=== PATIENT | female | born 1950 | race Caucasian/White ===

== ENCOUNTER → 2016-08-25 | Outpatient (CLI) | payer BC ==
[~2016-08-25] MED LIST: CHONCAP PO; KRIL1000 PO; LEVO50TA6 PO; MULT-506 PO; OPTIRAY 320 IV PRN; PRLSR20 PO; [UNRECOGNIZED DRUG - CODE] PO
--- NOTE | 2016-08-25 15:29 | DIAGNOSTIC IMAGING REPORT ---
CT SCAN OF THE CHEST, ABDOMEN, AND PELVIS WITH IV CONTRAST CLINICAL HISTORY: Gastric cancer. Endometrial cancer. COMPARISON STUDY: CT scan of the chest, abdomen, and pelvis dated 06/18/2016. TECHNIQUE: Following the IV administration of 116 of Optiray 320, CT scan of the chest, abdomen, and pelvis was performed from the thoracic inlet to the proximal femora. Images are reviewed in the axial, sagittal, and coronal planes. IV contrast was administered without complication. Automated dose control exposure was utilized. CT DOSE: 757.74 mGy.cm FINDINGS: CHEST: Thyroid: Imaged portions of the thyroid gland are normal in size and attenuation. Thoracic aorta: The thoracic aorta is normal in course and caliber. The heart demonstrates bovine variant anatomy. No aneurysm or dissection is seen. A right internal jugular central venous infusion port is in place. Pulmonary vasculature: The pulmonary trunk is normal in caliber. There are no filling defects identified in the central pulmonary vessels to indicate pulmonary was. Note that this examination was not protocoled for evaluation of the pulmonary arteries. Heart: The heart is normal in size and configuration, and without pericardial effusion. Lungs and pleural spaces: There are trace pleural effusions and dependent atelectasis. The trachea and central airways are patent. The trachea and central airways are clear. Linear atelectasis is noted at the left lung base. There is a small cluster of nodules at the left apex seen on image #[id number]. This is new from 06/18/2016, and the largest nodule measures up to 4 mm. Mediastinum: There is no mediastinal lymphadenopathy. Violette: Clear. Axillae: There is no axillary lymphadenopathy. Bony thorax: The skeletal structures are osteopenic. No lytic or blastic lesions are identified. ABDOMEN AND PELVIS: Liver: The contrast-enhanced liver is normal in size, contour, and attenuation. There is no intrahepatic or ductal dilatation. The hepatic veins and portal veins are patent. Small hepatic cysts are unchanged and measure up to 1.5 cm. Gallbladder: Unremarkable. Spleen: Normal in size and attenuation. Pancreas: Moderately atrophic and grossly unremarkable. Adrenal glands: Unremarkable. Kidneys: There is asymmetric cortical atrophy of the left kidney as compared to the right. The left kidney demonstrates heterogeneous and diminished perfusion. There is mild left hydroureteronephrosis to the level of a mass lesion in the pelvis. This has improved from previous. No hydronephrosis is seen on the right. Cortical hypodensities in the right kidney likely represent cysts but are too small for definitive characterization. These are unchanged from previous. Abdominal vasculature: The abdominal aorta is normal in course and caliber. Stomach and bowel: A tiny hiatal hernia is observed. There is significant wall thickening as well as hyperemia identified in the distal stomach/pyloric region. This is similar in appearance to prior studies. There is mild distention of the proximal stomach. The duodenum is normal in configuration. There is no bowel obstruction. The appendix is well-visualized and normal. Peritoneum: There is a large volume of perihepatic and perisplenic ascites, as well as free fluid in the pelvis. This has significantly increased from 06/18/2016. No intraperitoneal free air is seen. There has been significant progression of intraperitoneal metastatic disease as compared previous, with extensive omental and peritoneal nodularity. Lymphadenopathy: None. Pelvic viscera: Streak artifact from a left hip arthroplasty degrades evaluation of the pelvis. The bladder and uterus are normal as visualized. There are heterogeneous mass lesions identified in the pelvis bilaterally. The large lesion in the left pelvis has continued to increase in size, currently measuring 13 x 9 cm (producing measured 11 x 7 cm). A lesion in the right pelvis is seen on image #353 measures 5 x 4 cm (previously measured 3.0 x 3.5 cm.) Skeletal structures: The skeletal structures are osteopenic. There is mild lumbosacral spondylosis. No lytic or blastic lesions are seen. A left hip arthroplasty is in place. Advanced arthritic change is seen in the right hip. IMPRESSION: 1. There is no clear evidence of intrathoracic metastatic disease. 2. There are trace pleural effusions which are new from previous,. A small focus of clustered nodules at the left apex is also new. Although pathologically indeterminant, this is likely on an infectious/inflammatory basis. Attention at follow-up is recommended. 3. Significant wall thickening and mild hyperemia is again seen in the distal stomach. This likely represents the site of the patient's known gastric tumor. The appearance is similar to prior examinations. 4. There is distention of the proximal stomach, possibly related to mild gastric outlet obstruction. There is no evidence of complete obstruction as enteric contrast reaches the colon. This is also unchanged from 06/18/2016. 5. There is a large volume of abdominopelvic ascites, significantly increased from 06/18/2016. There has been significant progression of peritoneal carcinomatosis from previous as well as enlargement of bilateral pelvic masses which likely represent metastatic deposits in the ovaries. 6. Again seen is asymmetric atrophy of the left kidney with mild left hydroureteronephrosis. This likely represents obstruction from the large left pelvic mass, and the degree of hydronephrosis has improved from 06/18/2016. 7. Additional findings as above. Electronically signed by: Arben Almaguer M.D. 08/25/2016 3:28 PM Dictated Date/Time: 08/25/2016 3:13 PM
== END | disposition home or self-care (01) ==
LOC: C.CTS 14:51
PROVIDERS: ATTEND Internal Medicine Hematology & Oncology
DX: C16.3 Malignant neoplasm of pyloric antrum (principal); J90 Pleural effusion, not elsewhere classified; R91.8 Other nonspecific abnormal finding of lung field; R68.89 Other general symptoms and signs; R18.8 Other ascites; R19.07 Generalized intra-abdominal and pelvic swelling, mass and lump; N26.1 Atrophy of kidney (terminal); M16.11 Unilateral primary osteoarthritis, right hip; Z96.642 Presence of left artificial hip joint; K86.89 Other specified diseases of pancreas; K76.89 Other specified diseases of liver; M85.80 Other specified disorders of bone density and structure, unspecified site; J98.11 Atelectasis

== ENCOUNTER → 2016-08-27 | Outpatient (CLI) | payer BC ==
[~2016-08-27] MED LIST changes: -OPTIRAY 320 IV PRN
--- NOTE | 2016-08-27 09:03 | DIAGNOSTIC IMAGING REPORT ---
(BARIUM SWALLOW) ESOPHAGUS CLINICAL HISTORY: Gastric cancer. COMPARISON STUDY: Abdomen and pelvis CT 08/25/2016. FLUOROSCOPY TIME: 1.4 minutes. 31 images submitted.. FINDINGS: The contours of the hypopharynx are within normal limits. The esophagus is normal in course, caliber, motility. No hiatus hernia. No gastric esophageal reflux. The barium tablet passed without difficulty. IMPRESSION: Normal barium swallow. Electronically signed by: Ponce King M.D. 08/27/2016 9:01 AM Dictated Date/Time: 08/27/2016 9:00 AM
== END | disposition home or self-care (01) ==
LOC: C.RAD 08:25
PROVIDERS: ATTEND Nurse Practitioner Family
DX: C16.9 Malignant neoplasm of stomach, unspecified (principal)

== ENCOUNTER → 2016-10-01 | Outpatient (CLI) | payer BC ==
[~2016-10-01] MED LIST changes: -CHONCAP PO
--- NOTE | 2016-10-01 14:43 | DIAGNOSTIC IMAGING REPORT ---
CHEST 2 VIEWS ROUTINE HISTORY: Short of breath. COMPARISON: Chest 06/24/2015. FINDINGS: The lungs are clear. Cardiac silhouette is normal in size. No pleural effusions. No pneumothorax. Right jugular central venous catheter terminates in the SVC. IMPRESSION: No acute process. Electronically signed by: Ponce King M.D. 10/01/2016 2:42 PM Dictated Date/Time: 10/01/2016 2:41 PM
--- NOTE | 2016-10-06 12:03 | CODING QUERY NO DIAGNOSIS ---
TREATMENT RENDERED WITHOUT A DIAGNOSIS Viridiana DAVILA, To promote full compliance with coding requirements relating to patient care, physician participation is requested in all cases of neurological physiotherapist uncertainty. Please assist us with providing a diagnosis/symptom for the test(s) below: A diagnosis/symptom was not documented on your Order. A valid diagnosis/symptom is required to bill all insurances. Please remember that we are unable to code a diagnosis of rule out, probable, possible, questionable, or suspected. Tests that require a diagnosis: * CHEST X-RAY 2 VIEWS PA & LATERAL DIAGNOSIS: DATE OF SERVICE: 10/01/16 Provider Signature: Date: Thank you Dieter Pena [facility] Information Management Once completed, please kindly fax back to [phone] For questions please call [phone]
== END | disposition home or self-care (01) ==
LOC: C.RAD 14:15
PROVIDERS: ATTEND Nurse Practitioner Family
DX: C16.9 Malignant neoplasm of stomach, unspecified (principal); R06.02 Shortness of breath

== ENCOUNTER 2016-10-14 15:24 | Inpatient (IN) | payer BC ==
[~2016-10-14] VITALS: Ht 170.2 cm; Wt 67.9 kg
[2016-10-14] MEDS ORDERED: SODIUM CHLORIDE 0.9% 1000ML 1,000 ML IV STA (15:39)
[2016-10-14] MEDS ORDERED: ONDANSETRON INJ 2 MG/ML 2 ML VIAL IV PRN (15:45)
--- NOTE | 2016-10-14 15:47 | EMERGENCY ROOM VISIT NOTE ---
History Report prepared by Jose: Lesa Mata Under the Supervision of: Dr. Jose Menjivar M.D. First contact with patient: 15:33 Chief Complaint: WEAKNESS Stated Complaint: WEAKNESS, DIZZINESS History of Present Illness The patient is a 66 year old female who presents to the Emergency Room with complaints of persistent weakness for one week. She currently rates her discomfort as a 4/10 in severity. Per nursing staff, the patient has a history of stomach cancer with METs everywhere. Nursing staff reports that the patient had paracentesis on Wednesday. The patient notes constant nausea and vomiting. She states that she called oncology this morning and was instructed to come to the emergency department for further work up. The patient denies any fever. Source of History: patient, nursing staff Onset: one week Position: other (global) Symptom Intensity: 4/10 Quality: other (weakness) Timing: other (persistent) Associated Symptoms: + nausea, + vomiting, No fevers Review of Systems See HPI for pertinent positives & negatives. A total of 10 systems reviewed and were otherwise negative. Past Medical & Surgical Medical Problems: (1) Malignant neoplasm of stomach (2) Metastasis from gastric cancer Family History No pertinent family history stated. Social History Smoking Status: Never Smoker Drug Use: none Marital Status: Occupation Status: employed Current/Historical Medications Scheduled Beta Carotene (B-Noland-T), 1 TAB PO QAM Krill Oil (Krill Oil), 1 CAP PO DAILY Levothyroxine Sodium (Levothyroxine Sodium), 1 TAB PO DAILY Multivitamin (Multivitamin), 1 TAB PO BID Omeprazole (Prilosec), 20 MG PO BID Allergies Coded Allergies: Chlorhexidine (Verified Allergy, Intermediate, RASH, 10/14/16) Physical Exam Vital Signs Date Time Temp Pulse Resp B/P Pulse Ox O2 Delivery O2 Flow Rate FiO2 10/14/16 17:52 102 19 115/80 94 Room Air 10/14/16 16:57 94 Room Air 10/14/16 15:33 107 10/14/16 15:31 36.3 107 20 110/79 97 Room Air Physical Exam GENERAL: Patient awake, alert, oriented x 3. Patient follows commands. Patient appears emaciated and dehydrated. Patient appears extremely weak. SKIN: Thomas. No erythema, pallor, cyanosis or rash HEENT: Normal head, pupils equal, reactive to light and accommodation. Ears normal. Oral cavity and posterior pharynx appear normal. Neck: Without adenopathy, no neck vein distention. CHEST: Port in right upper chest. LUNGS: Clear to auscultation. No wheezes, no rales, no rhonchi. HEART: Tachycardic. No murmurs. No gallops. No rubs ABDOMEN: Distended abdomen, consistent with some ascites. No masses, no rebound , no hepatomegaly or splenomegaly. EXTREMITIES: No signs of trauma. 2+ pretibial edema. No calf or thigh tenderness. NEUROLOGIC: Cranial nerves II-XII within normal limits. No gross motor sensory function deficits. Medical Decision & Procedures ER Provider Diagnostic Interpretation: X ray results are stated below per my interpretation and the radiologist's interpretation. CHEST ONE VIEW PORTABLE CLINICAL HISTORY: Stomach cancer with metastases. COMPARISON STUDY: Chest CT August 25, 2016 and chest radiograph October 01, 2016. FINDINGS: A right internal jugular [id number] is in place. Lung lungs are normal. Lungs are clear. There is no pneumothorax or pleural effusion. Pulmonary vascularity is normal. Cardiomediastinal silhouette is normal. IMPRESSION: No acute cardiopulmonary findings. Electronically signed by: Jr Renee M.D. 10/14/2016 4:32 PM Dictated Date/Time: 10/14/2016 4:31 PM Laboratory Results 10/14/16 16:10 Red Blood Count 4.66, Mean Corpuscular Volume 70.4, Mean Corpuscular Hemoglobin 22.5, Mean Corpuscular Hemoglobin Concent 32.0, Mean Platelet Volume 8.6, Neutrophils (%) (Auto) 75.9, Lymphocytes (%) (Auto) 14.6, Monocytes (%) (Auto) 8.9, Eosinophils (%) (Auto) 0.0, Basophils (%) (Auto) 0.1, Neutrophils # (Auto) 8.33, Lymphocytes # (Auto) 1.60, Monocytes # (Auto) 0.98, Eosinophils # (Auto) 0.00, Basophils # (Auto) 0.01 10/14/16 16:10 Test 10/14/16 16:10 10/14/16 16:55 White Blood Count 10.98 K/uL (4.8-10.8) Red Blood Count 4.66 M/uL (4.2-5.4) Hemoglobin 10.5 g/dL (12.0-16.0) Hematocrit 32.8 % (37-47) Mean Corpuscular Volume 70.4 fL (80-100) Mean Corpuscular Hemoglobin 22.5 pg (25-34) Mean Corpuscular Hemoglobin Concent 32.0 g/dl (32-36) Platelet Count 471 K/uL (130-400) Mean Platelet Volume 8.6 fL (7.4-10.4) Neutrophils (%) (Auto) 75.9 % Lymphocytes (%) (Auto) 14.6 % Monocytes (%) (Auto) 8.9 % Eosinophils (%) (Auto) 0.0 % Basophils (%) (Auto) 0.1 % Neutrophils # (Auto) 8.33 K/uL (1.4-6.5) Lymphocytes # (Auto) 1.60 K/uL (1.2-3.4) Monocytes # (Auto) 0.98 K/uL (0.11-0.59) Eosinophils # (Auto) 0.00 K/uL (0-0.5) Basophils # (Auto) 0.01 K/uL (0-0.2) RDW Standard Deviation 57.6 fL (36.4-46.3) RDW Coefficient of Variation 22.5 % (11.5-14.5) Immature Granulocyte % (Auto) 0.5 % Immature Granulocyte # (Auto) 0.06 K/uL (0.00-0.02) Hypochromasia PRESENT Anisocytosis PRESENT Microcytosis PRESENT Macrocytosis PRESENT Ovalocytes 1+ Schistocytes 1+ Anion Gap 10.0 mmol/L (3-11) Est Creatinine Clear Calc Drug Dose 20.4 ml/min Estimated GFR () 21.6 Estimated GFR (Non- 18.6 BUN/Creatinine Ratio 30.4 (10-20) Calcium Level 9.0 mg/dl (8.5-10.1) Total Bilirubin 0.3 mg/dl (0.2-1) Aspartate Amino Transf (AST/SGOT) 16 U/L (15-37) Alanine Aminotransferase (ALT/SGPT) 22 U/L (12-78) Alkaline Phosphatase 79 U/L (45-117) Troponin I 0.020 ng/ml (0-0.045) Total Protein 5.3 gm/dl (6.4-8.2) Albumin 1.9 gm/dl (3.4-5.0) Globulin 3.4 gm/dl (2.5-4.0) Albumin/Globulin Ratio 0.6 (0.9-2) Urine Color YELLOW Urine Appearance CLEAR (CLEAR) Urine pH 5.0 (4.5-7.5) Urine Specific Webster 1.024 (1.000-1.030) Urine Protein NEG (NEG) Urine Glucose (UA) NEG (NEG) Urine Ketones 1+ (NEG) Urine Occult Blood 2+ (NEG) Urine Nitrite NEG (NEG) Urine Bilirubin NEG (NEG) Urine Urobilinogen NEG (NEG) Urine Leukocyte Esterase TRACE (NEG) Urine WBC (Auto) 1-5 /hpf (0-5) Urine RBC (Auto) 10-30 /hpf (0-4) Urine Hyaline Casts (Auto) 5-10 /lpf (0-5) Urine Epithelial Cells (Auto) >30 /lpf (0-5) Urine Bacteria (Auto) 1+ (NEG) Urine Renal Epithelial Cells /lpf (0-5) Laboratory results as stated above per my review. Medications Administered Medications (Trade) Dose Ordered Sig/Roman Route Start Time Stop Time Status Last Admin Dose Admin Ondansetron HCl 4 mg 4 mg PRN PRN IV 10/14/16 15:45 11/13/16 15:44 10/14/16 15:57 4 MG Sodium Chloride (Nss 1000ml) 1,000 ml @ 500 mls/hr Q2H STAT IV 10/14/16 15:39 10/14/16 17:38 DC 10/14/16 15:55 500 MLS/HR ECG Indication: weakness Rate (beats per minute): 99 Rhythm: normal sinus Findings: nonspecific-ST abn, no ectopy ED Course 1534: Past medical records reviewed. The patient was evaluated in room C9. A complete history and physical examination was performed. 1539: Ordered Sodium Chloride 1000 ml @ 500 mls/hr IV. 1545: Ordered Zofran Inj 4 mg IV. 1703: I reevaluated the patient and she is resting comfortably. I began to discuss hospice with her, but she states that no one has discussed this option with her in the past. I discussed all the exam findings with her and I discussed the treatment plan. She verbalized complete understanding and agreement. She will be evaluated for further treatment. 170: I discussed the patient's case with LILI Bundy. He is going to evaluate the patient for further treatment. Medical Decision Nurses notes reviewed. Medical history sheet reviewed. Differential diagnosis includes but is not limited to: metastatic cancer, dehydration, malnourished, metabolic disorder, infection. Patient is extremely weak. She can barely lift her head up off the bed. Multiple labs and imaging were obtained. The patient's renal function has deteriorated significantly in the past week. The patient had a recent paracentesis. She is currently dehydrated. The patient will require further evaluation in the hospital. I began to discuss hospice with the patient but she apparently has not had any discussions regarding palliative care. Consults Time Called: 1705 Consulting Physician: LILI Bundy Returned Call: [phone] I discussed the patient's case with LILI Bundy. He is going to evaluate the patient for further treatment. Impression Primary Impression: Renal failure Additional Impressions: Primary cancer of stomach with metastasis to other site Hyponatremia Scribe Attestation The scribe's documentation has been prepared under my direction and personally reviewed by me in its entirety. I confirm that the note above accurately reflects all work, treatment, procedures, and medical decision making performed by me. Departure Information Dispostion Being Evaluated By Hospitalist Estevan Taylor M.D. (PCP) Problem Qualifiers
[2016-10-14 16:21] LABS: BASO % 0.1 %; BASO ABS # 0.01 K/uL (0-0.2); HEMATOCRIT 32.8 % (37-47); IG% 0.5 %; LYMPH % 14.6 %; MEAN CELL VOLUME 70.4 fL (80-100); MEAN CORPUSCULAR HEMOGLOBIN 22.5 pg (25-34); MEAN PLATELET VOLUME 8.6 fL (7.4-10.4); MONO % 8.9 %; NEUT % 75.9 %; PLATELET COUNT 471 K/uL (130-400); RED BLOOD COUNT 4.66 M/uL (4.2-5.4); WHITE BLOOD COUNT 10.98 K/uL (4.8-10.8)
--- NOTE | 2016-10-14 16:33 | DIAGNOSTIC IMAGING REPORT ---
CHEST ONE VIEW PORTABLE CLINICAL HISTORY: Stomach cancer with metastases. COMPARISON STUDY: Chest CT August 25, 2016 and chest radiograph October 01, 2016. FINDINGS: A right internal jugular [id number] is in place. Lung lungs are normal. Lungs are clear. There is no pneumothorax or pleural effusion. Pulmonary vascularity is normal. Cardiomediastinal silhouette is normal. IMPRESSION: No acute cardiopulmonary findings. Electronically signed by: Jr Renee M.D. 10/14/2016 4:32 PM Dictated Date/Time: 10/14/2016 4:31 PM
[2016-10-14 16:43] LABS: BUN/CREATININE RATIO 30.4 (10-20); CREATININE 2.6 mg/dl (0.60-1.20); POTASSIUM 5.1 mmol/L (3.5-5.1)
[2016-10-14 16:46] LABS: ALB/GLOB RATIO 0.6 (0.9-2)
[2016-10-14 16:58] LABS: ANISOCYTOSIS PRESENT; COMPLETE YES; HYPOCHROMIA PRESENT; MICROCYTOSIS PRESENT; OVALOCYTES 1+; SCHISTOCYTES 1+
[2016-10-14 17:27] LABS: URINE APPEARANCE CLEAR (CLEAR); URINE BILIRUBIN NEG (NEG); URINE COLOR YELLOW; URINE EPITHELIAL CELL AUTO >30 /lpf (0-5); URINE NITRITE NEG (NEG); URINE SPECIFIC GRAVITY 1.024 (1.000-1.030); UROBILINOGEN NEG (NEG)
[2016-10-14] MEDS ORDERED: ACETAMINOPHEN 325 MG TAB PO PRN (17:30)
[2016-10-14] MEDS ORDERED: OXYCODONE HCL IR 5 MG TAB (IMMEDIATE RELEASE) PO PRN (17:30)
[2016-10-14] MEDS ORDERED: LORAZEPAM 2 MG/ML 1 ML VIAL IV PRN ×4 (17:30→19:15)
[2016-10-14] MEDS ORDERED: MoRPHine SULFATE 4 MG/ML 1 ML CARP\\VIAL IV PRN (17:30)
[2016-10-14 17:32] LABS: MANUAL MICROSCOPIC REQUIRED? NO; REVIEW REQ? YES
[2016-10-14 17:40] LABS: ZZURINE CULT IF INDIC CATH YES
[2016-10-14] MEDS ORDERED: LORAZEPAM INJ 1 MG in SYRINGE 0.5 ML IV PRN (19:15)
[2016-10-14 19:20] VITALS: BP 113/79; PULSE 92; TEMP 36.6; O2SAT 98; Ht 170.2 cm; Wt 67.9 kg
--- NOTE | 2016-10-14 19:26 | HISTORY & PHYSICAL EXAMINATION ---
DATE OF ADMISSION: 10/14/2016 CHIEF COMPLAINT: Weakness. ADMITTING DIAGNOSIS: Metastatic gastric carcinoma with peritoneal implants and ascites. HISTORY OF PRESENT ILLNESS: Ms. Ochoa is a 66-year-old female who was first diagnosed with gastric cancer in November of 2014. She initially had some response to chemotherapy but then had recurrence in June 2015. Chemotherapy was resumed somewhere in July or August 2015 and she was evaluated for radiation therapy which she was felt not qualified for. Subsequently in December of 2015, she was found to have a left adnexal mass with some hydronephrosis. This was eventually biopsied and proven to be metastatic carcinoma. The patient has been treated with Dr. Alan and currently is on chemotherapy, but has developed progressive abdominal distention and ascites. Her most recent therapeutic paracentesis was October 12. The patient now is unable to care for herself at home. She claims to have no local family, only having a daughter in [facility], and has no friends to help her. She is weak, otherwise, has not had a bowel movement in 1 week. She only has been drinking broth and soups at home. When asked about the next steps or possible future plans with her treatment, she says she did not know. When asked about DNR status, she said she did not know. She did request that social worker clinical assist her in compiling a will. OTHER PAST MEDICAL HISTORY: Bilateral total hip arthroplasties and hypothyroidism. MEDICATIONS: On presentation are Synthroid 50 mcg a day, Multivite, beta-carotene, Krill oil, and she takes Prilosec. SOCIAL HISTORY: She does not smoke. She occasionally drinks alcohol. 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 FAMILY HISTORY: Positive for uterine cancer. REVIEW OF SYSTEMS: Ten systems were reviewed and reveals profound weakness, decreased appetite, anorexia. She has actually had weight gain. She has had lower extremity edema. She has had constipation and she has had dark-colored urine. Otherwise, 10 systems were reviewed and are negative. PHYSICAL EXAMINATION: GENERAL: She is emaciated. VITAL SIGNS: Temperature is 36.3, pulse 107, respirations 20, BP 110/79, O2 sats 94 on room air. HEENT: She had a sallow colored appearance. She is anicteric. Her mucous membranes are dry. NECK: Trachea is midline. HEART: Regular without murmurs. A-port in the right upper chest. LUNGS: Clear without wheeze or crackles. ABDOMEN: Protuberant. There is a bandage on her left lower quadrant where the paracentesis was performed. She has shifting dullness. She has no guarding or focal tenderness. EXTREMITIES: With 1+ edema. NEUROLOGIC: She is awake, alert. She is oriented. She appears to be in a state of denial regarding the severity of her illness. She refuses my request to call her only daughter who lives in [facility] to update her on her condition. LABORATORY DATA: White count 10, H\T\H 10 and 32, platelet count 471, BUN and creatinine 79 and 2.6, potassium 5.1, sodium 127, calcium is normal at 9. Chest x-ray is unremarkable. EKG shows sinus rhythm. Last CT scan of her abdomen and pelvis was performed by Dr. Alan and Dr. Mcmahon on 08/25/2016. This showed trace pleural effusions, new apical cluster of nodules in her lung, distal stomach with wall thickening, large volume of ascites, progression of peritoneal carcinomatosis, large bilateral pelvic masses, asymmetric atrophy of the left kidney with mild left hydronephrosis which is likely extrinsically compressed and a large left pelvic mass. The pelvic masses at that time were measuring 11 x 9 on the left and 5 x 4 on the right. ASSESSMENT: Progressive metastatic gastric carcinoma is a 66-year-old female who now is unable to care for herself at home. As mentioned above, patient states Dr. Alan is giving her Optivo. The patient will be admitted to our facility. Palliative care and oncology consultation will be undertaken to determine if we are nearing a point for hospice transition. The patient needs to be counseled extensively and she is ill-prepared to progress into the next stage for metastatic illness. We will employ anxiety and pain medications to control these symptoms. We will use intravenous fluid given elevation of BUN and creatinine, understanding this may worsen her ascites. We may consider evaluating her for ureteral stenting but this will not change the outcome of her progressive metastatic disease. We will maintain her Synthroid therapy and use Lovenox for DVT prevention. The patient was questioned about her request for resuscitative status and said she was unsure at this time, and she requests case management help her preparing a will. BASSAM
[2016-10-14] MEDS: SODIUM CHLORIDE 0.9% 1000ML 1,000 ML IV SCH (20:10)
[2016-10-14] MEDS: ENOXAPARIN 30 MG/0.3 ML SYR SQ SCH (20:15)
[2016-10-14 23:54] VITALS: BP 90/60; PULSE 90; TEMP 36.8; O2SAT 100
[2016-10-15] VITALS: O2SAT 98
[2016-10-15] MEDS: SODIUM CHLORIDE 0.9% 1000ML 1,000 ML IV SCH ×3 (03:30→23:30)
[2016-10-15] MEDS: LEVOTHYROXINE 50 MCG TAB PO SCH (06:20)
[2016-10-15 07:00] VITALS: BP 96/67; PULSE 82; TEMP 36.7; O2SAT 99
[2016-10-15 07:06] LABS: BUN/CREATININE RATIO 38.3 (10-20); CALCIUM 7.9 mg/dl (8.5-10.1); CREATININE 1.9 mg/dl (0.60-1.20); POTASSIUM 4.2 mmol/L (3.5-5.1)
[2016-10-15 07:23] LABS: HEMATOCRIT 27.7 % (37-47); MEAN CELL VOLUME 70.3 fL (80-100); MEAN CORPUSCULAR HEMOGLOBIN 22.8 pg (25-34); MEAN CORPUSCULAR HGB CONC 32.5 g/dl (32-36); MEAN PLATELET VOLUME 8.9 fL (7.4-10.4); PLATELET COUNT 476 K/uL (130-400); RED BLOOD COUNT 3.94 M/uL (4.2-5.4)
[2016-10-15] MEDS ORDERED: PANTOprazole SOD 40 MG TAB PO SCH ×2 (08:00)
[2016-10-15] MEDS ORDERED: NURSING VERBAL MED ORDER ONE ×3 (09:30→14:15)
[2016-10-15] MEDS ORDERED: BISACODYL 10 MG SUPP PR PRN (09:45)
[2016-10-15] MEDS ORDERED: MINERAL OIL 30 ML UDC PO PRN (09:45)
[2016-10-15] MEDS: POLYETHYLENE (MIRALAX) 17 GM PACK PO SCH ×4 (10:03→22:00)
[2016-10-15 10:29] VITALS: O2SAT 98
--- NOTE | 2016-10-15 13:19 | Palliative Care Consultation ---
Consultation Date of Consultation: Oct 15, 2016. Requesting Physician: Dr. Vasquez Attending Physician: Dr. Walker Reason for Consultation: Goals of care History of Present Illness This 66 year old female patient presented to the ED yesterday with c/o weakness. She has a history of gastric cancer, diagnosed November 2014. She had a short period of response to treatment, then had recurrence in June 2015. Chemotherapy was resumed in the beginning of 2015. She was found to have a left adnexal mass in July 2015 which was biopsied and shown to be metastatic carcinoma. Most recently, patient has been receiving Opdivo. She's had increased abdominal distention and ascites, last paracentesis was 4/3 per record. This past week, she's been progressively weaker and it's been increasingly difficult for her to care for herself as she lives alone. She is not improving with the Opdivo and likely will not be continuing with this therapy. Palliative care consulted to assist in establishing goals of care. I met with the patient in room 452. She is very pleasant, alert and oriented x4. She denies any pain or discomfort, was eating lunch while I was in the room. She states that she knows her condition is terminal. She is accepting of this, however she has absolutely no support in this area. She is actually from [facility], came here quite a few years ago and dose research at [facility]. Her mother is still living in [facility], and her daughter lives in [facility]. Her daughter is not aware of the patient's cancer diagnosis at all, the patient has no told her because she didn't want her to worry. Patient states she has not a single friend or family member her that could help her or give her support. Patient is quite concerned because she can't be home alone any more but she has no means to pay for senior care care facility. Case management is working closely with the patient on this matter. We discussed goals of care. Patient stated, "I just want to be comfortable and go () as naturally as possible." She wants to be a level 5 DNR/DNI, would not want any life prolonging treatment such as feeding tube. Past Medical/Surgical History Medical History: Hypothyroidism Metastatic gastric cancer Surgical History: Bilateral total hips Social History Smoking Status: Never Smoker History of Alcohol Use: No Drug Use: none Marital Status: Housing Status: lives alone Occupation Status: employed Review of Systems Constitutional: + fatigue, + weakness, No chills, No fever ENT: No trouble swallowing Respiratory: No cough, No dyspnea on exertion, No shortness of breath Cardiac: No chest pain, No edema Abdomen: + constipation, No nausea, No pain, No vomiting Female : No problem reported Psychiatric: No anxiety, No depression symptoms Allergies Coded Allergies: Chlorhexidine (Verified Allergy, Intermediate, RASH, 10/14/16) Medications Current Inpatient Medications Medications (Trade) Dose Ordered Sig/Roman Route Start Time Stop Time Status Last Admin Dose Admin Enoxaparin Sodium (Lovenox Inj) 30 mg DAILY@2000 SQ 10/14/16 20:00 11/13/16 19:59 10/14/16 20:15 30 MG Acetaminophen (Tylenol Tab) 650 mg Q4H PRN PO 10/14/16 17:30 11/13/16 17:29 Ondansetron HCl (Zofran Inj) 4 mg Q6H PRN IV 10/14/16 17:30 11/13/16 17:29 Morphine Sulfate (MoRPHine SULFATE INJ) 4 mg Q4H PRN IV 10/14/16 17:30 10/28/16 17:29 Morphine Sulfate (MoRPHine SULFATE INJ) 2 mg Q4H PRN IV 10/14/16 17:30 10/28/16 17:29 Oxycodone HCl 10 mg 10 mg Q6 PRN PO 10/14/16 17:30 10/28/16 17:29 Sodium Chloride (Nss 1000ml) 1,000 ml @ 100 mls/hr Q10H IV 10/14/16 17:30 11/13/16 17:29 10/15/16 03:30 100 MLS/HR Levothyroxine Sodium 50 mcg 50 mcg DAILYBB PO 10/15/16 06:30 11/14/16 06:29 10/15/16 06:20 50 MCG Lorazepam/Syringe (Ativan Inj/ Syringe) 1 ml @ 1 mls/min Q4H PRN IV 10/14/16 19:15 11/13/16 19:14 Lorazepam 0.5 mg 0.5 mg Q4H PRN IV 10/14/16 19:15 11/13/16 19:14 Lorazepam/Syringe (Ativan Inj/ Syringe) 1 ml @ 1 mls/min Q4H PRN IV 10/14/16 19:15 11/13/16 19:14 Lorazepam (Ativan Inj) 1 mg Q4H PRN IV 10/14/16 19:15 11/13/16 19:14 Heparin Sodium (Porcine) (Heparin 100 Unit/ml 5ml Flush) 5 ml PRN PRN IV 10/15/16 00:30 11/14/16 00:29 Polyethylene (Miralax Powder Packet) 17 gm Q4H PO 10/15/16 10:00 11/14/16 09:59 10/15/16 10:03 17 GM Mineral Oil (Mineral Oil) 30 ml UD PRN PO 10/15/16 09:45 10/17/16 09:44 Bisacodyl (Dulcolax Supp) 10 mg UD PRN WV 10/15/16 09:45 10/17/16 09:44 Pantoprazole Sodium (Protonix Tab) 40 mg BID PO 10/15/16 20:00 11/14/16 19:59 Physical Exam Date Time Temp Pulse Resp B/P Pulse Ox O2 Delivery O2 Flow Rate FiO2 10/15/16 10:29 98 Room Air 10/15/16 07:00 36.7 82 18 96/67 99 Room Air 10/15/16 00:00 98 Room Air 10/14/16 23:54 36.8 90 18 90/60 100 Room Air 10/14/16 19:20 36.6 92 16 113/79 98 Room Air 10/14/16 17:52 102 19 115/80 94 Room Air 10/14/16 16:57 94 Room Air 10/14/16 15:33 107 10/14/16 15:31 36.3 107 20 110/79 97 Room Air General Appearance: no apparent distress, + thin ENT: hearing grossly normal Neck: no JVD Respiratory: lungs clear, no respiratory distress, no accessory muscle use Cardiovascular: regular rate, rhythm, no edema, no murmur, + normal peripheral pulses Abdomen: normal bowel sounds, non tender, + distended (slightly) Neurologic/Psychiatric: alert, normal mood/affect, oriented x 3 Skin: normal color Laboratory Results Last 24 Hours Test 10/14/16 16:10 10/14/16 16:55 10/15/16 05:50 White Blood Count 10.98 K/uL 10.60 K/uL Red Blood Count 4.66 M/uL 3.94 M/uL Hemoglobin 10.5 g/dL 9.0 g/dL Hematocrit 32.8 % 27.7 % Mean Corpuscular Volume 70.4 fL 70.3 fL Mean Corpuscular Hemoglobin 22.5 pg 22.8 pg Mean Corpuscular Hemoglobin Concent 32.0 g/dl 32.5 g/dl Platelet Count 471 K/uL 476 K/uL Mean Platelet Volume 8.6 fL 8.9 fL Neutrophils (%) (Auto) 75.9 % Lymphocytes (%) (Auto) 14.6 % Monocytes (%) (Auto) 8.9 % Eosinophils (%) (Auto) 0.0 % Basophils (%) (Auto) 0.1 % Neutrophils # (Auto) 8.33 K/uL Lymphocytes # (Auto) 1.60 K/uL Monocytes # (Auto) 0.98 K/uL Eosinophils # (Auto) 0.00 K/uL Basophils # (Auto) 0.01 K/uL RDW Standard Deviation 57.6 fL 58.3 fL RDW Coefficient of Variation 22.5 % 22.7 % Immature Granulocyte % (Auto) 0.5 % Immature Granulocyte # (Auto) 0.06 K/uL Hypochromasia PRESENT Anisocytosis PRESENT Microcytosis PRESENT Macrocytosis PRESENT Ovalocytes 1+ Schistocytes 1+ Sodium Level 127 mmol/L 129 mmol/L Potassium Level 5.1 mmol/L 4.2 mmol/L Chloride Level 91 mmol/L 94 mmol/L Carbon Dioxide Level 26 mmol/L 24 mmol/L Anion Gap 10.0 mmol/L 11.0 mmol/L Blood Urea Nitrogen 79 mg/dl 73 mg/dl Creatinine 2.60 mg/dl 1.90 mg/dl Est Creatinine Clear Calc Drug Dose 20.4 ml/min 28.7 ml/min Estimated GFR () 21.6 31.5 Estimated GFR (Non- 18.6 27.2 BUN/Creatinine Ratio 30.4 38.3 Random Glucose 108 mg/dl 79 mg/dl Calcium Level 9.0 mg/dl 7.9 mg/dl Total Bilirubin 0.3 mg/dl Aspartate Amino Transf (AST/SGOT) 16 U/L Alanine Aminotransferase (ALT/SGPT) 22 U/L Alkaline Phosphatase 79 U/L Troponin I 0.020 ng/ml Total Protein 5.3 gm/dl Albumin 1.9 gm/dl Globulin 3.4 gm/dl Albumin/Globulin Ratio 0.6 Urine Color YELLOW Urine Appearance CLEAR Urine pH 5.0 Urine Specific [place] 1.024 Urine Protein NEG Urine Glucose (UA) NEG Urine Ketones 1+ Urine Occult Blood 2+ Urine Nitrite NEG Urine Bilirubin NEG Urine Urobilinogen NEG Urine Leukocyte Esterase TRACE Urine WBC (Auto) 1-5 /hpf Urine RBC (Auto) 10-30 /hpf Urine Hyaline Casts (Auto) 5-10 /lpf Urine Epithelial Cells (Auto) >30 /lpf Urine Bacteria (Auto) 1+ Urine Renal Epithelial Cells /lpf Assessment & Plan Palliative Performance Scale: 50 % Problem list: Weakness Metastatic gastric cancer Constipation Goals of care (Z51.5) Palliative care plan: discussed with patient and Dr. Walker. -DNR/DNI -Goal is for comfort and quality of life -Patient would like to speak with oncologist about plan -Dr. Cazares did visit the patient, I spoke with him about plan. Patient is ready to focus on comfort, no more Opdivo at this point. -Needs placement or in-home care. She is unsure if she has senior care care insurance, but our caseworker intake are not able to access long-term care insurance and it needs to be done by the patient. -Patient would be agreeable to hospice but does not have the money to pay for [id number] caregivers around the clock. -She has no family or friend support. She is going to speak with her daughter in [place] over the phone and tell her about the cancer and situation. -Discharge planning is really uncertain at this time, but I will certainly assist in any way I can. I'd like to do a POLST form with patient before she is discharged. I will continue to follow. Thank you kindly for this consult.
[2016-10-15] MEDS ORDERED: MILK AND MOLASSES ENEMA PR ONE (14:30)
[2016-10-15 14:56] VITALS: BP 104/73; PULSE 103; TEMP 36.3; O2SAT 99
--- NOTE | 2016-10-15 15:14 | Oncology Consultation ---
Oncology/Heme Consultation Date of Consultation: Oct 15, 2016. Attending Physician: Eunice Walker M.D. Reason for Consultation: Metastatic gastric adenocarcinoma History of Present Illness Ms. Ochoa is a 66 year old woman with metastatic gastric adenocarcinoma. She has seen several lines of therapy and has progressed. Most recently, she is being treated with Opdivo since July,. Recently, she has been deteriorating clinically. She has recurrent ascites and has required 4 therapeutic paracenteses since 09/03/16. Her most recent was 3 days ago and she already has increasing ascites. She has lost a considerable amount of weight. She averaged around the 170 lb range for much of last year, but is down to 145 lb. She is eating poorly and her albumin is 1.9. She was admitted yesterday with weakness and an inability to care for herself at home. She is tired- appearing but comfortable at this time. She has very little in terms of support locally. She has a daughter who lives in [facility]. She will be coming to visit, but likely cannot stay long-term. Her primary complaint at this time is constipation. She is taking several laxatives and has not moved her bowels in a week. Past Medical/Surgical History Medical Problems: (1) Hyponatremia Status: Acute (2) Primary cancer of stomach with metastasis to other site Status: Acute (3) Renal failure Status: Acute Social History Smoking Status: Never Smoker Drug Use: none Marital Status: Occupation Status: employed Allergies Coded Allergies: Chlorhexidine (Verified Allergy, Intermediate, RASH, 10/14/16) Home Medications Scheduled Beta Carotene (B-[place]-T), 1 TAB PO QAM Krill Oil (Krill Oil), 1 CAP PO DAILY Levothyroxine Sodium (Levothyroxine Sodium), 1 TAB PO DAILY Multivitamin (Multivitamin), 1 TAB PO BID Omeprazole (Prilosec), 20 MG PO BID Current Inpatient Medications Current Inpatient Medications Medications (Trade) Dose Ordered Sig/Roman Route Start Time Stop Time Status Last Admin Dose Admin Enoxaparin Sodium (Lovenox Inj) 30 mg DAILY@2000 SQ 10/14/16 20:00 11/13/16 19:59 10/14/16 20:15 30 MG Acetaminophen (Tylenol Tab) 650 mg Q4H PRN PO 10/14/16 17:30 11/13/16 17:29 Ondansetron HCl (Zofran Inj) 4 mg Q6H PRN IV 10/14/16 17:30 11/13/16 17:29 Morphine Sulfate (MoRPHine SULFATE INJ) 4 mg Q4H PRN IV 10/14/16 17:30 10/28/16 17:29 Morphine Sulfate (MoRPHine SULFATE INJ) 2 mg Q4H PRN IV 10/14/16 17:30 10/28/16 17:29 Oxycodone HCl 10 mg 10 mg Q6 PRN PO 10/14/16 17:30 10/28/16 17:29 Sodium Chloride (Nss 1000ml) 1,000 ml @ 100 mls/hr Q10H IV 10/14/16 17:30 11/13/16 17:29 10/15/16 13:53 100 MLS/HR Levothyroxine Sodium 50 mcg 50 mcg DAILYBB PO 10/15/16 06:30 11/14/16 06:29 10/15/16 06:20 50 MCG Lorazepam/Syringe (Ativan Inj/ Syringe) 1 ml @ 1 mls/min Q4H PRN IV 10/14/16 19:15 11/13/16 19:14 Lorazepam 0.5 mg 0.5 mg Q4H PRN IV 10/14/16 19:15 11/13/16 19:14 Lorazepam/Syringe (Ativan Inj/ Syringe) 1 ml @ 1 mls/min Q4H PRN IV 10/14/16 19:15 11/13/16 19:14 Lorazepam (Ativan Inj) 1 mg Q4H PRN IV 10/14/16 19:15 11/13/16 19:14 Heparin Sodium (Porcine) (Heparin 100 Unit/ml 5ml Flush) 5 ml PRN PRN IV 10/15/16 00:30 11/14/16 00:29 Polyethylene (Miralax Powder Packet) 17 gm Q4H PO 10/15/16 10:00 11/14/16 09:59 10/15/16 10:03 17 GM Mineral Oil (Mineral Oil) 30 ml UD PRN PO 10/15/16 09:45 10/17/16 09:44 10/15/16 13:17 30 ML Bisacodyl (Dulcolax Supp) 10 mg UD PRN MT 10/15/16 09:45 10/17/16 09:44 10/15/16 13:19 10 MG Pantoprazole Sodium (Protonix Tab) 40 mg BID PO 10/15/16 20:00 11/14/16 19:59 Review of Systems Constitutional: No chills, No fatigue, No fever, No weakness, No weight loss Respiratory: No cough, No shortness of breath Cardiovascular: No chest pain Abdomen: + constipation, + problem reported (abdominal distention) Musculoskeletal: No joint pain, No muscle pain Genitourinary - Female: No dysuria Neurologic: No numbness/tingling, No weakness Hematologic / Lymphatic: No abnormal bleeding/bruising Physical Exam Date Time Temp Pulse Resp B/P Pulse Ox O2 Delivery O2 Flow Rate FiO2 10/15/16 10:29 98 Room Air 10/15/16 07:00 36.7 82 18 96/67 99 Room Air 10/15/16 00:00 98 Room Air 10/14/16 23:54 36.8 90 18 90/60 100 Room Air 10/14/16 19:20 36.6 92 16 113/79 98 Room Air 10/14/16 17:52 102 19 115/80 94 Room Air 10/14/16 16:57 94 Room Air 10/14/16 15:33 107 10/14/16 15:31 36.3 107 20 110/79 97 Room Air General Appearance: no apparent distress, + thin (ill-appearing and very weak) Eyes: EOMI Respiratory/Chest: lungs clear, no respiratory distress Cardiovascular: regular rate, rhythm, no murmur Abdomen/GI: non tender, soft, + distended Extremities/Musculoskelatal: no pedal edema, non-tender Neurologic/Psych: alert, oriented x 3 Skin: no rash Laboratory Results Last 24 Hours Test 10/14/16 16:10 10/14/16 16:55 10/15/16 05:50 White Blood Count 10.98 K/uL 10.60 K/uL Red Blood Count 4.66 M/uL 3.94 M/uL Hemoglobin 10.5 g/dL 9.0 g/dL Hematocrit 32.8 % 27.7 % Mean Corpuscular Volume 70.4 fL 70.3 fL Mean Corpuscular Hemoglobin 22.5 pg 22.8 pg Mean Corpuscular Hemoglobin Concent 32.0 g/dl 32.5 g/dl Platelet Count 471 K/uL 476 K/uL Mean Platelet Volume 8.6 fL 8.9 fL Neutrophils (%) (Auto) 75.9 % Lymphocytes (%) (Auto) 14.6 % Monocytes (%) (Auto) 8.9 % Eosinophils (%) (Auto) 0.0 % Basophils (%) (Auto) 0.1 % Neutrophils # (Auto) 8.33 K/uL Lymphocytes # (Auto) 1.60 K/uL Monocytes # (Auto) 0.98 K/uL Eosinophils # (Auto) 0.00 K/uL Basophils # (Auto) 0.01 K/uL RDW Standard Deviation 57.6 fL 58.3 fL RDW Coefficient of Variation 22.5 % 22.7 % Immature Granulocyte % (Auto) 0.5 % Immature Granulocyte # (Auto) 0.06 K/uL Hypochromasia PRESENT Anisocytosis PRESENT Microcytosis PRESENT Macrocytosis PRESENT Ovalocytes 1+ Schistocytes 1+ Sodium Level 127 mmol/L 129 mmol/L Potassium Level 5.1 mmol/L 4.2 mmol/L Chloride Level 91 mmol/L 94 mmol/L Carbon Dioxide Level 26 mmol/L 24 mmol/L Anion Gap 10.0 mmol/L 11.0 mmol/L Blood Urea Nitrogen 79 mg/dl 73 mg/dl Creatinine 2.60 mg/dl 1.90 mg/dl Est Creatinine Clear Calc Drug Dose 20.4 ml/min 28.7 ml/min Estimated GFR () 21.6 31.5 Estimated GFR (Non- 18.6 27.2 BUN/Creatinine Ratio 30.4 38.3 Random Glucose 108 mg/dl 79 mg/dl Calcium Level 9.0 mg/dl 7.9 mg/dl Total Bilirubin 0.3 mg/dl Aspartate Amino Transf (AST/SGOT) 16 U/L Alanine Aminotransferase (ALT/SGPT) 22 U/L Alkaline Phosphatase 79 U/L Troponin I 0.020 ng/ml Total Protein 5.3 gm/dl Albumin 1.9 gm/dl Globulin 3.4 gm/dl Albumin/Globulin Ratio 0.6 Urine Color YELLOW Urine Appearance CLEAR Urine pH 5.0 Urine Specific [place] 1.024 Urine Protein NEG Urine Glucose (UA) NEG Urine Ketones 1+ Urine Occult Blood 2+ Urine Nitrite NEG Urine Bilirubin NEG Urine Urobilinogen NEG Urine Leukocyte Esterase TRACE Urine WBC (Auto) 1-5 /hpf Urine RBC (Auto) 10-30 /hpf Urine Hyaline Casts (Auto) 5-10 /lpf Urine Epithelial Cells (Auto) >30 /lpf Urine Bacteria (Auto) 1+ Urine Renal Epithelial Cells /lpf Assessment & Plan Ms. Ochoa is deteriorating rapidly. She has progressed on all standard therapies for her gastric cancer and is currently receiving off-label, empiric therapy with Opdivo. She is clinically worsening, which argues that she is not really responding to treatment. It is not clear what her next line of therapy would be, but more importantly I doubt she would tolerate much additional therapy at this point. I think hospice care would be the most appropriate next step for her. I discussed this with Dr. Alan, her primary oncologist, who agrees. Palliative care have been consulted. Making arrangements for her will be difficult, as hospice care is generally done in the home with significant family assistance, which she won't have. We will work as a team to find the best next place for her to go.
--- NOTE | 2016-10-15 17:33 | Hospitalist Progress Note ---
Hospitalist Progress Note Date of Service Oct 15, 2016. Subjective feeling somewhat better now. Constitutional: No fever Respiratory: No shortness of breath Cardiovascular: No chest pain Objective Vital Signs Date Time Temp Pulse Resp B/P Pulse Ox O2 Delivery O2 Flow Rate FiO2 10/15/16 14:56 36.3 103 20 104/73 99 Room Air 10/15/16 10:29 98 Room Air 10/15/16 07:00 36.7 82 18 96/67 99 Room Air 10/15/16 00:00 98 Room Air 10/14/16 23:54 36.8 90 18 90/60 100 Room Air 10/14/16 19:20 36.6 92 16 113/79 98 Room Air 10/14/16 17:52 102 19 115/80 94 Room Air Physical Exam General Appearance: no apparent distress Respiratory/Chest: lungs clear, no respiratory distress Cardiovascular: regular rate, rhythm Abdomen: normal bowel sounds, soft, + distended Neurologic/Psychiatric: alert, oriented x 3 Skin: warm/dry Laboratory Results Last 24 Hours Test 10/15/16 05:50 White Blood Count 10.60 K/uL Red Blood Count 3.94 M/uL Hemoglobin 9.0 g/dL Hematocrit 27.7 % Mean Corpuscular Volume 70.3 fL Mean Corpuscular Hemoglobin 22.8 pg Mean Corpuscular Hemoglobin Concent 32.5 g/dl RDW Standard Deviation 58.3 fL RDW Coefficient of Variation 22.7 % Platelet Count 476 K/uL Mean Platelet Volume 8.9 fL Sodium Level 129 mmol/L Potassium Level 4.2 mmol/L Chloride Level 94 mmol/L Carbon Dioxide Level 24 mmol/L Anion Gap 11.0 mmol/L Blood Urea Nitrogen 73 mg/dl Creatinine 1.90 mg/dl Est Creatinine Clear Calc Drug Dose 28.7 ml/min Estimated GFR () 31.5 Estimated GFR (Non- 27.2 BUN/Creatinine Ratio 38.3 Random Glucose 79 mg/dl Calcium Level 7.9 mg/dl Assessment and Plan 66 y/o F with Progressive metastatic gastric carcinoma currently being treated off label with Optivo is here for being weak and not being able to care for herself at home. Weakness - Worsening cancer with leading complication likely contributing. LIBBY - Prerenal from poor oral intake and obstructive sec to Known pelvic mass compression and contributing to right hydroureteronephrosis. ? need for stenting considering plan for hospice care. continue IVF Hyponatremia - poor oral intake. Continue IVF Constipation - bowel regimen Progressive metastatic gastric carcinoma - Oncology input noted. Palliative care consulted. Ascites - IVF may worsen ascites - follow Hypothyroid - synthroid. Lovenox for DVT prevention. DNR Lives alone and has no help at home. Social service consult for ? hospice placement
[2016-10-15] MEDS: ENOXAPARIN 30 MG/0.3 ML SYR SQ SCH (20:08)
[2016-10-15] MEDS: PANTOprazole SOD 40 MG TAB PO SCH (20:09)
[2016-10-16] VITALS: O2SAT 100
[2016-10-16 00:20] VITALS: BP 96/69; PULSE 87; TEMP 36.7; O2SAT 100
[2016-10-16] MEDS: POLYETHYLENE (MIRALAX) 17 GM PACK PO SCH ×7 (02:00→21:39)
[2016-10-16] MEDS: LEVOTHYROXINE 50 MCG TAB PO SCH (06:40)
[2016-10-16 07:17] VITALS: BP 100/74; PULSE 98; TEMP 36.3; O2SAT 100
[2016-10-16] MEDS ORDERED: MAGNESIUM HYDROXIDE SUSP 30 ML UDC PO ONE (08:15)
[2016-10-16] MEDS: PANTOprazole SOD 40 MG TAB PO SCH ×2 (08:27→19:48)
[2016-10-16] MEDS: SODIUM CHLORIDE 0.9% 1000ML 1,000 ML IV SCH (09:16)
[2016-10-16 09:33] LABS: BLOOD UREA NITROGEN 60 mg/dl (7-18); BUN/CREATININE RATIO 35.4 (10-20); CALCIUM 8.1 mg/dl (8.5-10.1); CARBON DIOXIDE 19 mmol/L (21-32); CHLORIDE 94 mmol/L (98-107); GLUCOSE 99 mg/dl (70-99); SODIUM 126 mmol/L (136-145)
--- NOTE | 2016-10-16 12:59 | Hospitalist Progress Note ---
Hospitalist Progress Note Date of Service Oct 16, 2016. Subjective moved bowels overnight not able to eat much due to acid reflux. Constitutional: No fever Respiratory: No shortness of breath Cardiovascular: No chest pain Abdomen: + problem reported (GERD) Objective Vital Signs Date Time Temp Pulse Resp B/P Pulse Ox O2 Delivery O2 Flow Rate FiO2 10/16/16 08:00 Room Air 10/16/16 07:17 36.3 98 18 100/74 100 Room Air 10/16/16 00:20 36.7 87 20 96/69 100 Room Air 10/16/16 00:00 100 Room Air 10/15/16 16:10 Room Air 10/15/16 14:56 36.3 103 20 104/73 99 Room Air Physical Exam General Appearance: no apparent distress, + cachetic Respiratory/Chest: lungs clear, no respiratory distress Cardiovascular: regular rate, rhythm Abdomen: normal bowel sounds, soft, + distended (fluid) Neurologic/Psychiatric: alert, oriented x 3 Skin: warm/dry Laboratory Results Last 24 Hours Test 10/16/16 08:48 10/16/16 10:00 Sodium Level 126 mmol/L Potassium Level mmol/L 3.9 mmol/L Chloride Level 94 mmol/L Carbon Dioxide Level 19 mmol/L Anion Gap 13.0 mmol/L Blood Urea Nitrogen 60 mg/dl Creatinine 1.70 mg/dl Est Creatinine Clear Calc Drug Dose 32.1 ml/min Estimated GFR () 36.0 Estimated GFR (Non- 31.1 BUN/Creatinine Ratio 35.4 Random Glucose 99 mg/dl Calcium Level 8.1 mg/dl Assessment and Plan 66 y/o F with Progressive metastatic gastric carcinoma currently being treated off label with Optivo is here for being weak and not being able to care for herself at home. Weakness - Worsening cancer with leading complication likely contributing. LIBBY - Prerenal from poor oral intake and obstructive sec to Known pelvic mass compression and contributing to right hydroureteronephrosis. considering hospice care - push oral intake. IVF prn. Holding for now due to worsening ascites. Hyponatremia - no improvement with NSS. follow. Constipation - resolved GERD - PPI now changed to BID. follow Progressive metastatic gastric carcinoma - Oncology input noted. Palliative care consulted. Plan for Hospice placement Ascites - worsened since admission sec to IVF. d/c IVF. Hypothyroid - synthroid. Lovenox for DVT prevention. DNR Lives alone and has no help at home. Daughter coming from [place]. Social service consult for ? hospice placement
[2016-10-16 15:57] VITALS: BP 110/79; PULSE 94; TEMP 36.7; O2SAT 99
[2016-10-16 16:00] VITALS: O2SAT 99
[2016-10-16 19:40] VITALS: BP 109/79; PULSE 99; TEMP 36.4; O2SAT 98
[2016-10-16] MEDS: ENOXAPARIN 30 MG/0.3 ML SYR SQ SCH (19:49)
[2016-10-17] MEDS: POLYETHYLENE (MIRALAX) 17 GM PACK PO SCH ×6 (01:53→21:09)
[2016-10-17] MEDS: LORAZEPAM INJ 0.5 MG in SYRINGE 0.75 ML IV PRN (03:54)
[2016-10-17 05:52] LABS: HEMATOCRIT 26.6 % (37-47); MEAN CELL VOLUME 71.1 fL (80-100); MEAN CORPUSCULAR HEMOGLOBIN 22.7 pg (25-34); MEAN PLATELET VOLUME 9.1 fL (7.4-10.4); PLATELET COUNT 544 K/uL (130-400); RED BLOOD COUNT 3.74 M/uL (4.2-5.4); WHITE BLOOD COUNT 11.34 K/uL (4.8-10.8)
[2016-10-17] MEDS: LEVOTHYROXINE 50 MCG TAB PO SCH (06:02)
[2016-10-17 06:33] LABS: BUN/CREATININE RATIO 37.3 (10-20); CALCIUM 8.1 mg/dl (8.5-10.1); CREATININE 1.8 mg/dl (0.60-1.20); POTASSIUM 4.4 mmol/L (3.5-5.1)
[2016-10-17] MEDS: PANTOprazole SOD 40 MG TAB PO SCH ×2 (07:39→21:09)
[2016-10-17 08:05] VITALS: BP 92/61; PULSE 90; TEMP 36.4; O2SAT 98
[2016-10-17 12:36] VITALS: BP 95/70; PULSE 110; TEMP 36.2; O2SAT 94
--- NOTE | 2016-10-17 14:18 | Hospitalist Progress Note ---
Hospitalist Progress Note Date of Service Oct 17, 2016. Subjective called by nurse - patient fell on the floor while in the bathroom hit back of her head felt dizzi. no LOC. vomited liquid brown vomitus. Objective Vital Signs Date Time Temp Pulse Resp B/P Pulse Ox O2 Delivery O2 Flow Rate FiO2 10/17/16 12:36 36.2 110 18 95/70 94 Room Air 10/17/16 08:05 36.4 90 18 92/61 98 Room Air 10/17/16 08:00 Room Air 10/17/16 00:01 Room Air 10/16/16 23:26 10/16/16 20:00 Room Air 10/16/16 19:40 36.4 99 16 109/79 98 Room Air 10/16/16 16:00 99 Room Air 10/16/16 15:57 36.7 94 18 110/79 99 Room Air Physical Exam General Appearance: + moderate distress, + cachetic Respiratory/Chest: no respiratory distress, + decreased breath sounds Cardiovascular: regular rate, rhythm Abdomen: normal bowel sounds, non tender, soft, + distended Neurologic/Psychiatric: alert, + pertinent finding (lethargic) Skin: warm/dry Laboratory Results Last 24 Hours Test 10/17/16 05:05 White Blood Count 11.34 K/uL Red Blood Count 3.74 M/uL Hemoglobin 8.5 g/dL Hematocrit 26.6 % Mean Corpuscular Volume 71.1 fL Mean Corpuscular Hemoglobin 22.7 pg Mean Corpuscular Hemoglobin Concent 32.0 g/dl RDW Standard Deviation 59.2 fL RDW Coefficient of Variation 22.5 % Platelet Count 544 K/uL Mean Platelet Volume 9.1 fL Sodium Level 126 mmol/L Potassium Level 4.4 mmol/L Chloride Level 92 mmol/L Carbon Dioxide Level 23 mmol/L Anion Gap 11.0 mmol/L Blood Urea Nitrogen 67 mg/dl Creatinine 1.80 mg/dl Est Creatinine Clear Calc Drug Dose 30.3 ml/min Estimated GFR () 33.6 Estimated GFR (Non- 29.0 BUN/Creatinine Ratio 37.3 Random Glucose 107 mg/dl Calcium Level 8.1 mg/dl Assessment and Plan 66 y/o F with Progressive metastatic gastric carcinoma currently being treated off label with Optivo is here for being weak and not being able to care for herself at home. Weakness - Worsening cancer with leading complication likely contributing. Fall/dizziness with scalp laceration - Likely sec to orthostasis sec to dehydration. head laceration - wound flushed and cleaned, edges approximated and dermabond applied. Check CT head. Vomited after fall - brownish liquid. Likely with bowel obstruction. Will make NPO, restart IVF. check obstruction series. LIBBY - Prerenal from poor oral intake and obstructive sec to Known pelvic mass compression and contributing to right hydroureteronephrosis. resuming ivf. Hyponatremia - no improvement with NSS. follow. Constipation - resolved GERD - Change PPI to IV. Progressive metastatic gastric carcinoma - Oncology input noted. Palliative care consulted. Plan for Hospice placement - oncology to discuss with daughter Ascites - Follow Hypothyroid - synthroid. Lovenox for DVT prevention. DNR Daughter arrived from [facility] - discussed poor prognosis. Would like to discuss with oncology to help with decision making. critical care time spent 40 min
--- NOTE | 2016-10-17 15:11 | DIAGNOSTIC IMAGING REPORT ---
CT HEAD WITHOUT CONTRAST (CT) CLINICAL HISTORY: Head trauma. Head pain COMPARISON STUDY: No previous studies for comparison. TECHNIQUE: Axial CT of the brain is performed from the vertex to the skull base. IV contrast was not administered for this examination. CT DOSE: 712.55 mGy.cm FINDINGS: No intra or extra-axial mass lesions are visualized. There is no CT evidence of acute cortical infarction. There is no evidence of midline shift. There is no acute hemorrhage. No calvarial fractures are visualized. There are minor white matter hypodensities likely on a small vessel basis. There is no evidence of pathologic ventricular dilatation. There is no evidence of acute sinusitis IMPRESSION: No acute intracranial findings Electronically signed by: Oneal Mendoza M.D. 10/17/2016 3:09 PM Dictated Date/Time: 10/17/2016 3:08 PM
[2016-10-17] MEDS: D5W AND NSS 1,000 ML IV SCH (15:42)
[2016-10-17 15:55] VITALS: BP 98/67; PULSE 107; TEMP 36.1; O2SAT 96
[2016-10-17 19:46] VITALS: BP 98/67; PULSE 107; TEMP 36.1; O2SAT 96
--- NOTE | 2016-10-17 20:11 | DIAGNOSTIC IMAGING REPORT ---
KUB CLINICAL HISTORY: Vomiting. History of gastric carcinoma. COMPARISON STUDY: CT scan dated 08/25/2016 FINDINGS: There are dilated left central small bowel loops, measuring up to 56 mm in diameter. There is a paucity of colonic gas. The findings may indicate a small bowel obstruction. There are postsurgical changes of a total left hip arthroplasty. Moderately advanced arthritic changes are present within the right hip. IMPRESSION: Dilated central small bowel loops. The findings may indicate a small bowel obstruction. Electronically signed by: Oneal Mendoza M.D. 10/17/2016 8:09 PM Dictated Date/Time: 10/17/2016 8:05 PM
--- NOTE | 2016-10-17 20:37 | Progress Note ---
Progress Note Date of Service Oct 17, 2016. Progress Note kub suggests SBO, keep npo x ice chips will not place ngt unless vomiting continues
[2016-10-17] MEDS: ENOXAPARIN 30 MG/0.3 ML SYR SQ SCH (21:09)
[2016-10-17 22:46] VITALS: BP 96/67; PULSE 90; TEMP 37.1; O2SAT 99
[2016-10-18] MEDS: D5W AND NSS 1,000 ML IV SCH ×3 (00:01→20:09)
[2016-10-18] MEDS: POLYETHYLENE (MIRALAX) 17 GM PACK PO SCH ×6 (01:45→22:00)
[2016-10-18] MEDS: LEVOTHYROXINE 50 MCG TAB PO SCH (05:52)
[2016-10-18 07:17] LABS: BUN/CREATININE RATIO 43.3 (10-20); CREATININE 1.6 mg/dl (0.60-1.20); POTASSIUM 4.2 mmol/L (3.5-5.1)
[2016-10-18 08:15] VITALS: BP 93/64; PULSE 89; TEMP 37; O2SAT 100
[2016-10-18] MEDS: PANTOprazole SOD 40 MG TAB PO SCH ×2 (08:16→20:00)
[2016-10-18 10:57] VITALS: O2SAT 100
[2016-10-18 11:58] VITALS: BP 92/67; PULSE 90; TEMP 37; O2SAT 100
--- NOTE | 2016-10-18 12:18 | Hematology/Oncology Prog Note ---
Hematology/Onc Progress Note Date of Service Oct 18, 2016. Diagnoses Metastatic gastric cancer Medications Medications Administered Medications (Trade) Dose Ordered Sig/Roman Route Start Time Stop Time Status Last Admin Dose Admin Ondansetron HCl 4 mg 4 mg PRN PRN IV 10/14/16 15:45 10/14/16 18:54 DC 10/14/16 15:57 4 MG Sodium Chloride (Nss 1000ml) 1,000 ml @ 500 mls/hr Q2H STAT IV 10/14/16 15:39 10/14/16 17:38 DC 10/14/16 15:55 500 MLS/HR Pantoprazole Sodium (Protonix Tab) 40 mg QAM PO 10/15/16 08:00 10/15/16 09:56 DC 10/15/16 08:52 40 MG Enoxaparin Sodium 30 mg 30 mg DAILY@2000 SQ 10/14/16 20:00 11/13/16 19:59 10/17/16 21:09 30 MG Sodium Chloride (Nss 1000ml) 1,000 ml @ 100 mls/hr Q10H IV 10/14/16 17:30 10/16/16 12:54 DC 10/16/16 09:16 100 MLS/HR Levothyroxine Sodium 50 mcg 50 mcg DAILYBB PO 10/15/16 06:30 11/14/16 06:29 10/17/16 06:02 50 MCG Lorazepam/Syringe (Ativan Inj/ Syringe) 1 ml @ 1 mls/min Q4H PRN IV 10/14/16 19:15 11/13/16 19:14 10/17/16 03:54 1 MLS/MIN Heparin Sodium (Porcine) (Heparin 100 Unit/ml 5ml Flush) 5 ml PRN PRN IV 10/15/16 00:30 11/14/16 00:29 10/17/16 05:05 5 ML Polyethylene (Miralax Powder Packet) 17 gm Q4H PO 10/15/16 10:00 11/14/16 09:59 10/15/16 10:03 17 GM Mineral Oil (Mineral Oil) 30 ml UD PRN PO 10/15/16 09:45 10/17/16 09:44 DC 10/15/16 13:17 30 ML Bisacodyl (Dulcolax Supp) 10 mg UD PRN NV 10/15/16 09:45 10/17/16 09:44 DC 10/15/16 13:19 10 MG Pantoprazole Sodium (Protonix Tab) 40 mg BID PO 10/15/16 20:00 11/14/16 19:59 10/18/16 08:16 40 MG Miscellaneous Medication (Milk And Molasses Enema) 1 ea ONE ONCE NV 10/15/16 14:30 10/15/16 14:31 DC 10/15/16 16:08 1 EA Magnesium Hydroxide 15 ml 15 ml NOW ONCE PO 10/16/16 08:15 10/16/16 08:21 DC 10/16/16 08:28 15 ML Dextrose/Sodium Chloride (D5W And Nss) 1,000 ml @ 100 mls/hr Q10H IV 10/17/16 13:45 11/16/16 13:44 10/18/16 10:08 100 MLS/HR Subjective Ms. Ochoa is resting comfortably in bed. She had an episode of vomiting yesterday and a KUB suggested a bowel obstruction. She is now on sips of clear liquids and is not having abdominal pain. She does describe having a small bowel movement yesterday. Otherwise, she is if anything slightly improved, more alert and interactive today. Review of Systems: Constitutional: + fatigue, + weakness, No fever Respiratory: No cough, No shortness of breath Cardiovascular: No chest pain Abdomen: + constipation, No nausea, No pain Neurologic: No numbness/tingling, No weakness Heme: No abnormal bleeding/bruising Skin: No rash Vital Signs Vital Signs Past 12 Hours Date Time Temp Pulse Resp B/P Pulse Ox O2 Delivery O2 Flow Rate FiO2 10/18/16 11:58 37.0 90 16 92/67 100 10/18/16 10:57 100 Room Air 10/18/16 08:15 37.0 89 16 93/64 100 Physical Exam Constitutional: General Apperance: cachectic Level of Distress: chronically ill Psychiatric: Mental Status: active & alert Orientation: oriented except where noted Lungs: Respiratory Effort: no dyspnea Auscuitation: breath sounds normal Cardiovascular: Heart Auscultation: RRR Abdomen: Inspection & Palpation: soft, no tenderness, guarding & rebound, distended Extremities: no edema Laboratory Last 24 Hours Test 10/18/16 05:55 Sodium Level 127 mmol/L Potassium Level 4.2 mmol/L Chloride Level 96 mmol/L Carbon Dioxide Level 20 mmol/L Anion Gap 11.0 mmol/L Blood Urea Nitrogen 69 mg/dl Creatinine 1.60 mg/dl Est Creatinine Clear Calc Drug Dose 34.1 ml/min Estimated GFR () 38.8 Estimated GFR (Non- 33.5 BUN/Creatinine Ratio 43.3 Random Glucose 110 mg/dl Calcium Level 7.0 mg/dl Assessment & Plan Ms. Ochoa remains comfortable on supportive care. We had a long conversation yesterday about goals of care and while she reaffirmed her DNR/DNI status, she was not yet ready to transition to comfort measures only. If she is developing a bowel obstruction, that would be quite ominous, as aside from bowel rest and supportive care, she is unlikely to be a candidate for more invasive management. Her family is with her and, as she stabilizes, we can discuss in more detail her disposition.
--- NOTE | 2016-10-18 14:48 | DIAGNOSTIC IMAGING REPORT ---
KUB CLINICAL HISTORY: Small bowel obstruction. COMPARISON STUDY: KUB October 17, 2016. FINDINGS: Left hip arthroplasty is incidentally noted. Severe arthritis of the right hip is noted. Subchondral lucency within the right femoral head could reflect avascular necrosis or subchondral cystic change related to arthritis. The small bowel loops are somewhat centralized. Moderate small bowel dilatation persists. This is similar to prior exam. IMPRESSION: 1. Moderate small bowel dilatation, similar to prior exam. The findings favor a small bowel obstruction. 2. Centralized small bowel loops which may be due to ascites. Electronically signed by: Jr Renee M.D. 10/18/2016 2:46 PM Dictated Date/Time: 10/18/2016 2:44 PM
[2016-10-18 17:40] VITALS: BP 93/66; PULSE 90; TEMP 36.5; O2SAT 100
[2016-10-18 19:07] VITALS: BP 91/64; PULSE 86; TEMP 36.5; O2SAT 98
[2016-10-18] MEDS: ENOXAPARIN 30 MG/0.3 ML SYR SQ SCH (20:11)
--- NOTE | 2016-10-18 21:20 | Hospitalist Progress Note ---
Hospitalist Progress Note Date of Service Oct 18, 2016. Subjective feeling hungry. would like to have food. Constitutional: No fever Respiratory: No shortness of breath Cardiovascular: No chest pain Objective Vital Signs Date Time Temp Pulse Resp B/P Pulse Ox O2 Delivery O2 Flow Rate FiO2 10/18/16 19:07 36.5 86 18 91/64 98 Room Air 10/18/16 17:40 36.5 90 18 93/66 100 10/18/16 11:58 37.0 90 16 92/67 100 10/18/16 10:57 100 Room Air 10/18/16 08:15 37.0 89 16 93/64 100 10/18/16 00:05 Room Air 10/17/16 22:46 37.1 90 20 96/67 99 Room Air Physical Exam General Appearance: no apparent distress, + cachetic Respiratory/Chest: no respiratory distress, + decreased breath sounds Cardiovascular: regular rate, rhythm Abdomen: normal bowel sounds, soft, + distended Neurologic/Psychiatric: alert, oriented x 3 Laboratory Results Last 24 Hours Test 10/18/16 05:55 Sodium Level 127 mmol/L Potassium Level 4.2 mmol/L Chloride Level 96 mmol/L Carbon Dioxide Level 20 mmol/L Anion Gap 11.0 mmol/L Blood Urea Nitrogen 69 mg/dl Creatinine 1.60 mg/dl Est Creatinine Clear Calc Drug Dose 34.1 ml/min Estimated GFR () 38.8 Estimated GFR (Non- 33.5 BUN/Creatinine Ratio 43.3 Random Glucose 110 mg/dl Calcium Level 7.0 mg/dl Assessment and Plan 66 y/o F with Progressive metastatic gastric carcinoma currently being treated off label with Optivo is here for being weak and not being able to care for herself at home. Weakness - Worsening cancer with leading complication likely contributing. Fall/dizziness with scalp laceration - Likely sec to orthostasis sec to dehydration. head laceration - wound flushed and cleaned, edges approximated and dermabond applied. CT head neg. SBO - Vomited after fall - brownish liquid. NPO. water added for comfort eating - understands risk of aspiration leading to respiratory distress and . continue IVF. waiting till am to discuss with Dr. Alan before pursuing comfort care. LIBBY - Prerenal from poor oral intake and obstructive sec to Known pelvic mass compression and contributing to right hydroureteronephrosis. IVF Hyponatremia- no change. Constipation - resolved GERD - Change PPI to IV. Progressive metastatic gastric carcinoma - Oncology input noted. Palliative care consulted. Plan for Hospice placement - oncology following. will see primary oncologist in am Ascites - Follow Hypothyroid - synthroid. Lovenox for DVT prevention. DNR Daughter visiting here from [facility]
[2016-10-18 23:11] VITALS: BP 100/68; PULSE 93; TEMP 36.6; O2SAT 97
[2016-10-19] MEDS: POLYETHYLENE (MIRALAX) 17 GM PACK PO SCH ×6 (02:00→21:04)
[2016-10-19 03:49] VITALS: BP 107/64; PULSE 82; TEMP 36.9; O2SAT 94
[2016-10-19] MEDS: D5W AND NSS 1,000 ML IV SCH (05:46)
[2016-10-19] MEDS: LEVOTHYROXINE 50 MCG TAB PO SCH (05:52)
[2016-10-19 05:58] LABS: HEMATOCRIT 24.5 % (37-47); MEAN CELL VOLUME 71.8 fL (80-100); MEAN CORPUSCULAR HEMOGLOBIN 22.6 pg (25-34); MEAN CORPUSCULAR HGB CONC 31.4 g/dl (32-36); MEAN PLATELET VOLUME 8.3 fL (7.4-10.4); PLATELET COUNT 505 K/uL (130-400); RED BLOOD COUNT 3.41 M/uL (4.2-5.4); WHITE BLOOD COUNT 8.69 K/uL (4.8-10.8)
[2016-10-19 06:35] LABS: BUN/CREATININE RATIO 43.1 (10-20); CALCIUM 7.2 mg/dl (8.5-10.1); CREATININE 1.2 mg/dl (0.60-1.20); POTASSIUM 3.5 mmol/L (3.5-5.1)
[2016-10-19 07:34] VITALS: BP 99/72; PULSE 91; TEMP 36.4; O2SAT 97
[2016-10-19] MEDS: PANTOprazole SOD 40 MG TAB PO SCH ×2 (08:17→21:03)
--- NOTE | 2016-10-19 12:26 | Hematology/Oncology Prog Note ---
Hematology/Onc Progress Note Date of Service Oct 19, 2016. Diagnoses Metastatic gastric adenocarcinoma Medications Medications Administered Medications (Trade) Dose Ordered Sig/Roman Route Start Time Stop Time Status Last Admin Dose Admin Ondansetron HCl 4 mg 4 mg PRN PRN IV 10/14/16 15:45 10/14/16 18:54 DC 10/14/16 15:57 4 MG Sodium Chloride (Nss 1000ml) 1,000 ml @ 500 mls/hr Q2H STAT IV 10/14/16 15:39 10/14/16 17:38 DC 10/14/16 15:55 500 MLS/HR Pantoprazole Sodium (Protonix Tab) 40 mg QAM PO 10/15/16 08:00 10/15/16 09:56 DC 10/15/16 08:52 40 MG Enoxaparin Sodium 30 mg 30 mg DAILY@2000 SQ 10/14/16 20:00 11/13/16 19:59 10/18/16 20:11 30 MG Sodium Chloride (Nss 1000ml) 1,000 ml @ 100 mls/hr Q10H IV 10/14/16 17:30 10/16/16 12:54 DC 10/16/16 09:16 100 MLS/HR Levothyroxine Sodium 50 mcg 50 mcg DAILYBB PO 10/15/16 06:30 11/14/16 06:29 10/17/16 06:02 50 MCG Lorazepam/Syringe (Ativan Inj/ Syringe) 1 ml @ 1 mls/min Q4H PRN IV 10/14/16 19:15 11/13/16 19:14 10/17/16 03:54 1 MLS/MIN Heparin Sodium (Porcine) (Heparin 100 Unit/ml 5ml Flush) 5 ml PRN PRN IV 10/15/16 00:30 11/14/16 00:29 10/17/16 05:05 5 ML Polyethylene (Miralax Powder Packet) 17 gm Q4H PO 10/15/16 10:00 11/14/16 09:59 10/18/16 18:35 17 GM Mineral Oil (Mineral Oil) 30 ml UD PRN PO 10/15/16 09:45 10/17/16 09:44 DC 10/15/16 13:17 30 ML Bisacodyl (Dulcolax Supp) 10 mg UD PRN PA 10/15/16 09:45 10/17/16 09:44 DC 10/15/16 13:19 10 MG Pantoprazole Sodium (Protonix Tab) 40 mg BID PO 10/15/16 20:00 11/14/16 19:59 10/19/16 08:17 40 MG Miscellaneous Medication (Milk And Molasses Enema) 1 ea ONE ONCE PA 10/15/16 14:30 10/15/16 14:31 DC 10/15/16 16:08 1 EA Magnesium Hydroxide 15 ml 15 ml NOW ONCE PO 10/16/16 08:15 10/16/16 08:21 DC 10/16/16 08:28 15 ML Dextrose/Sodium Chloride (D5W And Nss) 1,000 ml @ 100 mls/hr Q10H IV 10/17/16 13:45 11/16/16 13:44 10/19/16 05:46 100 MLS/HR Subjective She is very weak but otherwise denies pain. Her daughter is here as well as some other relatives.There has been no fever. Review of Systems: Constitutional: Negative for night sweats, or fever Eyes: Negative for event change of vision ENT: Negative for epistaxis, nasal discharge, sore throat, or deafness Cardiovascular: Negative for chest pain, palpitations, dizziness, diaphoresis Respiratory: Negative for new shortness of breath,hemoptysis, or purulent cough Gastrointestinal: Negative for diarrhea, hematemesis, melena, nausea, vomiting , or dyspepsia Integumentary (skin): Negative for rash or jaundice discoloration Genitourinary: Negative for urinary frequency, hematuria, or dysuria Neurological: Negative for weakness, seizure activity, headache, or dizziness Lymphatic/Hematologic: Negative for petechiae, bleeding or new adenopathy Musculoskeletal: Negative for new joint or back pain Allergic/Immunologic: Negative for unusual rash or pruritis. Vital Signs Vital Signs Past 12 Hours Date Time Temp Pulse Resp B/P Pulse Ox O2 Delivery O2 Flow Rate FiO2 10/19/16 08:30 Room Air 10/19/16 07:34 36.4 91 18 99/72 97 Room Air 10/19/16 03:49 36.9 82 18 107/64 94 Room Air Physical Exam Constitutional: vitals are stable. Thin pleasant female Eyes: Eyes are SCOTT EOMI without conjuctival erythema or icterus. ENT: External examination was negative for masses. Neck: Negative for masses or palpable thyromegaly Respiratory: Lung sounds were generally clear bilaterally Cardiovascular: Heart was RRR without significant murmur, gallops aoe rubs Gastrointestinal: No palpable hepatic or splenomegaly. The abdomen was soft with normal bowel sounds. Lymphatic system: there was no palpable peripheral lymphadenopathy Musculoskeletal System: The musculoskeletal system seemed concordant with age. Skin: The skin was negative for jaundice. Neurologic exam: The exam was negative for any focal findings. Deep tendon reflexes were equal and symmetrical. Psychiatric exam: Was essentially negative with normal mood and effect. Breast exam: Not done Extremities: Negative for edema Constitutional: General Apperance: cachectic Level of Distress: chronically ill Psychiatric: Mental Status: active & alert Orientation: oriented except where noted Lungs: Respiratory Effort: no dyspnea Auscuitation: breath sounds normal Cardiovascular: Heart Auscultation: RRR Abdomen: Inspection & Palpation: soft, no tenderness, guarding & rebound, distended Extremities: no edema Laboratory Last 24 Hours Test 10/19/16 05:45 White Blood Count 8.69 K/uL Red Blood Count 3.41 M/uL Hemoglobin 7.7 g/dL Hematocrit 24.5 % Mean Corpuscular Volume 71.8 fL Mean Corpuscular Hemoglobin 22.6 pg Mean Corpuscular Hemoglobin Concent 31.4 g/dl RDW Standard Deviation 59.6 fL RDW Coefficient of Variation 22.6 % Platelet Count 505 K/uL Mean Platelet Volume 8.3 fL Sodium Level 130 mmol/L Potassium Level 3.5 mmol/L Chloride Level 100 mmol/L Carbon Dioxide Level 20 mmol/L Anion Gap 10.0 mmol/L Blood Urea Nitrogen 52 mg/dl Creatinine 1.20 mg/dl Est Creatinine Clear Calc Drug Dose 45.5 ml/min Estimated GFR () 54.9 Estimated GFR (Non- 47.4 BUN/Creatinine Ratio 43.1 Random Glucose 111 mg/dl Calcium Level 7.2 mg/dl Assessment & Plan Metastatic refractory gastric adenocarcinoma. Her performance status has a teary related. No further systemic therapy is planned. I reviewed this first with her daughter who is in from [place] this morning. I then met with the patient today at noon along with her daughter again and with the quality assurance inspector also present. I stated to the patient that no further therapy is planned. She may not get any stronger. She will be unable to travel to [facility] or [facility]. We should plan for care to happen locally at a nearby correction her living facility. She seemed to understand and agree. Again the daughter was present for this conversation. The quality assurance inspector was then picking up with the conversation to discuss what alternatives to look into. Supportive care continues. Hemoglobin is 7.7 and she may need transfused soon if this continues to drift down.
[2016-10-19 13:21] VITALS: BP 105/75; PULSE 101; TEMP 36.5; O2SAT 100
[2016-10-19] MEDS ORDERED: SOAP SUDS ENEMA PR ONE (14:30)
--- NOTE | 2016-10-19 14:45 | Family Medicine Progress Note ---
Progress Note Date of Service Oct 19, 2016. Subjective Pt evaluation today including: conversation w/ patient, conversation w/ family Pain: none Patient reports no vomiting Not passing much gas Does have abdominal distension but not much pain Feels constipation, stomach is "growling" Tolerating clear liquids Family is out looking for suitable placements. Constitutional: + fatigue, + weakness, + weight loss, No chills, No fever ENT: No hearing loss Respiratory: No cough, No dyspnea on exertion, No shortness of breath, No sputum, No wheezing Cardiovascular: No chest pain Abdomen: + constipation, No diarrhea, No nausea, No pain, No vomiting Female : No dysuria, No urinary frequency Objective Physical Exam General Appearance: no apparent distress ENT: hearing grossly normal Neck: no adenopathy, thyroid normal Respiratory/Chest: lungs clear, normal breath sounds, no respiratory distress, no accessory muscle use Cardiovascular: regular rate, rhythm Abdomen: non tender, soft, + abnormal bowel sounds (hypoactive), + distended Extremities: normal range of motion, non-tender, no calf tenderness, + pedal edema (1+ pitting) Neurologic/Psychiatric: alert, + depressed affect Assessment and Plan 66 y/o F with Progressive metastatic gastric carcinoma who presented with Weakness and inability to care for herself. Her prognosis is guarded. No systemic therapy is planned for her Cancer. At this time she and her family have decided on comfort care and are in the process of finding a suitable facility. She does complain of Increased LE swelling. Cachexia/ weakness 2/2 to gastric carcinoma Likely from metastatic Ca but also malnutrition tolerating Clear liquids Appreciate oncology reccs: no systemic treatment planned. Palliative care has seen patient early during admission- goal is for comfort care, patient is DNR/DNI LE swelling Likely from fluids and compression of pelvic mass LE dopplers- negative for DVT Lower rate of IV fluids. - since patient is not eating or drinking much Anemia likely 2/2 to her cancer but noted significant drop since admission Denies melena/hematochezia will trend H/H- 7.7 this morning, repeat H/H in the afternoon is a 8.2 type and cross pRBCS- patient amenable to transfusion should she need it Fall/dizziness with scalp laceration sec to dehydration/orthostasis head lac treated with Dermabond. CT head neg. Small bowel obstruction Still has evidence of this on X-ray and exam No NG tube at this time due to no vomiting. Tolerating clear liquids Reduce rate IVF for now due to LE Swelling- lung exam is reassuring LIBBY - Prerenal Improving Cr down to 1.2 today Encourage PO hydration as tolerated Constipation: Not eating much Has been getting miralax with no relief Will try soap suds enema Hyponatremia- slight improvement GERD - Protonix Ascites - has peritoneal implants and has had paracentesis in the past- could do therapeutic if needed. ? Hypothyroid - Synthroid. Lovenox for DVT prevention. DNR Daughter visiting here from [facility] Case management working on Hospice placement Reviewed: Pt Seen/Exam by Me History Resident Physician Supervision Note: I was present with Dr. Morse during the history and exam. I discussed the case with the resident and agree with the findings and plan as documented in the note. Any exceptions or clarifications are listed here: Patient feels weak, no abdominal pain, no nausea or vomiting, very low appetite. Complains of no bowel movement. Vitals reviewed appears cachectic, pale Regular rate and rhythm, no murmurs, rubs or rubs Clear to auscultation bilaterally except decreased the bases Abdomen with mild distention, hypoactive bowel sounds, no tenderness Extremities 1-2+ pitting edema bilaterally to the thighs Labs and rads reviewed, bilateral lower extremity Doppler negative for DVT 66-year-old female with metastatic gastric cancer, recurrent ascites, here with weakness and cachexia secondary to cancer. Palliative and comfort measures at this point. Does not have pain, may require paracentesis for comfort in the future but not needing that now. We'll try to keep her bowels moving and encouraged her to eat for comfort as desired. Lower extremity edema most likely secondary to compression of pelvic veins from large pelvic masses as well as hypoalbuminemia. Transfuse for comfort if hemoglobin drops below 7. Appreciate palliative care consult. Awaiting placement. Documented By: Genesis Paredes
[2016-10-19 14:55] LABS: HEMATOCRIT 25.7 % (37-47)
--- NOTE | 2016-10-19 15:56 | DIAGNOSTIC IMAGING REPORT ---
BILATERAL LOWER EXTREMITY VENOUS DOPPLER HISTORY: Leg swelling COMPARISON STUDY: None. FINDINGS: There is normal compressibility, flow, and augmentation within the bilateral lower extremity deep venous systems. IMPRESSION: No DVT within the right or left lower extremity. Electronically signed by: Ponce King M.D. 10/19/2016 3:54 PM Dictated Date/Time: 10/19/2016 3:54 PM
[2016-10-19 16:24] VITALS: BP 109/81; PULSE 95; TEMP 36.5; O2SAT 100
[2016-10-19] MEDS ORDERED: ENOXAPARIN 40 MG/0.4 ML SYR SQ SCH (20:00)
[2016-10-19] MEDS: ONDANSETRON INJ 2 MG/ML 2 ML VIAL IV PRN (20:07)
[2016-10-19] MEDS ORDERED: D5W AND NSS 1,000 ML IV SCH (20:15)
[2016-10-19 20:33] VITALS: BP 102/73; PULSE 106; TEMP 36.2; O2SAT 98
[2016-10-19] MEDS: MoRPHine SULFATE 2 MG/ML CARP IV PRN ×2 (21:03→21:32)
[2016-10-19 23:58] VITALS: BP 90/65; PULSE 100; TEMP 36; O2SAT 97
[2016-10-20] MEDS: POLYETHYLENE (MIRALAX) 17 GM PACK PO SCH ×2 (02:00→05:08)
[2016-10-20] MEDS: MoRPHine SULFATE 2 MG/ML CARP IV PRN ×3 (02:41→08:08)
[2016-10-20] MEDS: LORAZEPAM INJ 0.5 MG in SYRINGE 0.75 ML IV PRN (03:13)
[2016-10-20 04:07] VITALS: BP 90/64; PULSE 95; TEMP 36.8; O2SAT 95
[2016-10-20] MEDS: LEVOTHYROXINE 50 MCG TAB PO SCH (05:27)
[2016-10-20] MEDS: ONDANSETRON INJ 2 MG/ML 2 ML VIAL IV PRN (05:50)
[2016-10-20] MEDS: PANTOprazole SOD 40 MG TAB PO SCH (07:38)
[2016-10-20] MEDS ORDERED: KETOROLAC TROMETHAMINE 30 MG/ML VIAL IV PRN (07:45)
[2016-10-20] MEDS ORDERED: NURSING VERBAL MED ORDER ONE (08:15)
[2016-10-20] MEDS ORDERED: MoRPHine SULFATE 2 MG/ML CARP IV SCH (08:30)
--- NOTE | 2016-10-20 08:37 | Death Pronouncement Note ---
Pronouncement Note Date & Time of Oct 20, 2016. 0815 Pronouncement I was called to pt's room as RN reported brown emesis coming from mouth, and she was poorly responsive. She was suctioned and given morphine 2 mg IV x 1. 2 minutes later she stopped breathing. I pronounced her at 08:15. At time of pronouncement the patients pupils were fixed and dilated, there was no spontaneous respiratory effort, no palpable pulse, no audible heart tones, and no response to pain or voice.
--- NOTE | 2016-10-20 09:25 | Death Summary ---
Summary of Admission Date Oct 14, 2016 at 17:35 (Sabina Morse MD) Date & Time of Oct 20, 2016. 0815 (Sabina Morse MD) Cause of progressive metastatic gastric cancer (Sabina Morse MD) Secondary Diagnoses Upper GI Bleed (Sabina Morse MD) Hospital Course Ms. Coon was a 66 y/o F who was diagnosed with gastric cancer in November of 2014. She had some response to chemo initially but had a recurrence in Jun 2015. She was not a candidate for radiation therapy. She was later found to have a left adnexal mass with hydronephrosis, that was confirmed via biopsy to be metastatic carcinoma. She has been seen by Dr. Alan and treated with chemo but went on to develop ascites for which she had therapeutic paracentesis and implants. She presented to the ED due to weakness and inability to care for herself. While here, she was seen by Oncology and it was determined that her cancer has progressed despite receiving Opdivo and chemotherapy. She was declining. She was not thought to be a good candidate for any further treatment. Oncology was recommending hospice care. She then progressed to having bloody emesis and was found to have a small bowel obstruction. She was kept NPO but without NGT due to no further vomiting. Together with her family, the decision to make her comfort care was discussed. She was DNR/DNI. The family was in the process of looking for hospice placements. However, on 10/20/16 around 7:50 am, the patient had about 400 cc of coffee ground emesis. She then progressed to having agonal breathing and was minimally responsive. The hospitalist team arrived at the bedside and the patient was actively passing away. She was given a dose of morphine 2 mg IV for comfort. The patient was pronounced at 8:15 am. (Sabina Morse MD) History Resident Physician Supervision Note: I was present with Dr. Maurer during the history and exam. I discussed the case with the resident and agree with the findings and plan as documented in the note. Any exceptions or clarifications are listed here: I came into the room to see the patient shortly after the resident called stating that the patient had . She was not responsive, her pupils were fixed and dilated, she had no audible heart sounds during auscultation for over 1 minute, she had no breath sounds and no rise and fall of the chest either. She had evidence of gastrointestinal hemorrhage with hematemesis shortly before her passing and this is likely due to erosion of a malignant mass into a blood vessel GI tract secondary to her metastatic gastric cancer. Documented By: Genesis Paredes (Genesis Paredes MD)
== END 2016-10-20 12:00 | disposition expired | DRG 375 ==
LOC: ENRESERVDT → ENRESERVTM → EDBD 15:24 → C.EDC 15:25 → C.MS4W 17:35 → C.4E 10-17 19:49
PROVIDERS: ADMIT Internal Medicine; ATTEND Family Medicine
DX: C16.9 Malignant neoplasm of stomach, unspecified (principal); N17.9 Acute kidney failure, unspecified; N13.30 Unspecified hydronephrosis; E87.1 Hypo-osmolality and hyponatremia; R18.8 Other ascites; K92.2 Gastrointestinal hemorrhage, unspecified; C79.82 Secondary malignant neoplasm of genital organs; E03.9 Hypothyroidism, unspecified; K59.00 Constipation, unspecified; Z51.5 Encounter for palliative care; Z66 Do not resuscitate; K21.9 Gastro-esophageal reflux disease without esophagitis; I95.1 Orthostatic hypotension; S01.01XA Laceration without foreign body of scalp, initial encounter; X58.XXXA Exposure to other specified factors, initial encounter; Z92.21 Personal history of antineoplastic chemotherapy; Z96.643 Presence of artificial hip joint, bilateral